=== PATIENT | female | born 1940 | race African-American/Black ===

== ENCOUNTER 2023-03-28 12:06 | Observation (INO) | payer OTHER, BC ==
[2023-03-28 16:04] LABS: BASO % 0.5 % (0-2.0); HEMATOCRIT 17.8 % (32.4-45.2); LYMPH % 39.2 % (8-40); MCH 32.5 pg (25.7-33.7); MEAN CELL VOLUME 98.7 fl (80-96); MEAN PLT VOLUME 8.5 fl (7.5-11.1); MONO % 9.5 % (3.8-10.2); NEUT % 50.8 % (42.8-82.8); PLATELET COUNT 120 10^3/uL (134-434); RDW 26.7 % (11.6-15.6); WHITE BLOOD COUNT 4.2 K/mm3 (4.0-10.0)
[2023-03-28 16:07] LABS: HEMOGLOBIN 5.9 GM/dL (10.7-15.3)
[2023-03-28 16:28] LABS: POTASSIUM 3.8 mmol/L (3.5-5.1)
[2023-03-28 16:30] LABS: CALCIUM 9.5 mg/dL (8.5-10.1)
[2023-03-28 16:31] LABS: ALBUMIN 2.8 g/dl (3.4-5.0); BLOOD UREA NITROGEN 25.9 mg/dL (7-18)
[2023-03-28 16:34] LABS: CREATININE 3.9 mg/dL (0.55-1.3)
[2023-03-28 16:36] LABS: BILIRUBIN,TOTAL 0.4 mg/dL (0.2-1); TOT PROT 8.6 g/dl (6.4-8.2)
[2023-03-28 16:50] LABS: ANISOCYTOSIS 3+; MACROCYTOSIS 0; OVALOCYTE 1+
[2023-03-28 21:07] LABS: RETICULOCYTES 2.69 % (0.5-1.5)
[2023-03-28] MEDS: SODIUM BICARBONATE 650 MG TABLET PO SCH (23:03)
[2023-03-28] MEDS: METOPROLOL TARTRATE 50 MG TABLET (FP) PO SCH (23:03)
[2023-03-29] VITALS: BMI 25.2
[2023-03-29 04:56] VITALS: RESP 16
[2023-03-29] MEDS: SODIUM BICARBONATE 650 MG TABLET PO SCH ×2 (06:29→13:05)
[2023-03-29] MEDS: METOPROLOL TARTRATE 50 MG TABLET (FP) PO SCH (09:43)
[2023-03-29] MEDS ORDERED: ATORVASTATIN CA 20 MG TABLET (FP) PO SCH (10:00)
[2023-03-29 10:09] LABS: BASO % 0.3 % (0-2.0); HEMATOCRIT 27.7 % (32.4-45.2); HEMOGLOBIN 9.2 GM/dL (10.7-15.3); LYMPH % 30.5 % (8-40); MCH 30.7 pg (25.7-33.7); MCHC 33.2 g/dl (32.0-36.0); MEAN CELL VOLUME 92.3 fl (80-96); MONO % 9.7 % (3.8-10.2); NEUT % 59.5 % (42.8-82.8); RDW 24.7 % (11.6-15.6); WHITE BLOOD COUNT 5.4 K/mm3 (4.0-10.0)
[2023-03-29 10:15] LABS: POTASSIUM 4.2 mmol/L (3.5-5.1)
[2023-03-29 10:22] LABS: BLOOD UREA NITROGEN 25.3 mg/dL (7-18); CALCIUM 9.2 mg/dL (8.5-10.1)
[2023-03-29 10:25] LABS: CREATININE 3.5 mg/dL (0.55-1.3)
[2023-03-29 16:02] VITALS: BP 186/82; PULSE 58; TEMP 98.6
== END 2023-03-29 18:07 | disposition home or self-care (01) ==
LOC: JER 12:06 → JERBED 16:46 → INTOOBSV 16:46 → UNDOADMOB 16:46 → JERBED 17:30 → J5S 18:16
PROVIDERS: ADMIT Internal Medicine; ATTEND Internal Medicine
PROC: 30233N1 Transfusion of Nonautologous Red Blood Cells into Peripheral Vein, Percutaneous Approach (ICD-10-PCS; principal; 2023-03-28)
DX: D64.9 Anemia, unspecified (principal); N18.4 Chronic kidney disease, stage 4 (severe); C88.0 Waldenstrom macroglobulinemia; Z90.49 Acquired absence of other specified parts of digestive tract; Z85.3 Personal history of malignant neoplasm of breast
CPT/HCPCS: 0241U-QW; 36415; 36430; 80048; 80053; 82272; 82607; 82728; 82746; 83540; 83550; 83615; 84466; 85025; 85045; 86850; 86900; 86901; 86922; 93005; 93010; 99285-25; G0378; P9038; P9058

== ENCOUNTER 2023-11-27 11:04 | Emergency (ER) | payer OTHER, BC ==
[2023-11-27 11:16] VITALS: BP 112/62; PULSE 79; RESP 18; TEMP 97.7; BMI 22.8
== END 2023-11-27 12:13 | disposition home or self-care (01) ==
LOC: JERFT 11:04
DX: H11.32 Conjunctival hemorrhage, left eye (principal); R51.9 Headache, unspecified
CPT/HCPCS: 99282-25

== ENCOUNTER 2023-12-24 08:21 | Emergency (ER) | payer OTHER, BC ==
[2023-12-24 08:32] VITALS: BMI 24.0
[2023-12-24 11:23] LABS: BASO % 0.5 % (0-2.0); HEMATOCRIT 22.7 % (32.4-45.2); HEMOGLOBIN 7.4 GM/dL (10.7-15.3); LYMPH % 43.2 % (8-40); MCH 33.5 pg (25.7-33.7); MCHC 32.5 g/dl (32.0-36.0); MEAN CELL VOLUME 103.1 fl (80-96); MEAN PLT VOLUME 9.8 fl (7.5-11.1); NEUT % 46.3 % (42.8-82.8); PLATELET COUNT 100 10^3/uL (134-434); RDW 15.9 % (11.6-15.6)
[2023-12-24 11:33] LABS: INR 0.99 (0.83-1.09); PROTHROMBIN TIME (PATIENT) 11.2 SEC (9.7-13.0)
[2023-12-24 11:35] LABS: ACTIVATED PTT 27.9 SECONDS (25.2-36.5)
[2023-12-24 11:42] LABS: POTASSIUM 4.5 mmol/L (3.5-5.1)
[2023-12-24 11:45] LABS: ALBUMIN 2.8 g/dl (3.4-5.0); BLOOD UREA NITROGEN 53.2 mg/dL (7-18)
[2023-12-24 11:48] LABS: CREATININE 5.8 mg/dL (0.55-1.3)
[2023-12-24 11:49] LABS: BILIRUBIN,TOTAL 0.4 mg/dL (0.2-1); CALCIUM 10.1 mg/dL (8.5-10.1); TOT PROT 6.8 g/dl (6.4-8.2)
[2023-12-24 11:53] LABS: N-TERMINAL BNP 5661.4 pg/ml (5-450)
[2023-12-24 17:21] VITALS: BP 168/78; PULSE 68; RESP 18; TEMP 98.5
== END 2023-12-24 17:26 | disposition short-term general hospital (02) ==
LOC: JER 08:21
DX: H53.132 Sudden visual loss, left eye (principal); C88.0 Waldenstrom macroglobulinemia; I12.0 Hypertensive chronic kidney disease with stage 5 chronic kidney disease or end stage renal disease; N18.6 End stage renal disease; Z99.2 Dependence on renal dialysis; H53.8 Other visual disturbances; R06.02 Shortness of breath; R51.9 Headache, unspecified; G89.29 Other chronic pain; M79.89 Other specified soft tissue disorders; Z20.822 Contact with and (suspected) exposure to COVID-19
CPT/HCPCS: 0241U-QW; 36415; 70450-TC; 71045-TC-FY; 80053; 83880; 84484; 85025; 85610; 85730; 93005; 93010; 99285-25

== ENCOUNTER 2024-01-04 12:10 | Inpatient (IN) | payer OTHER, BC ==
[2024-01-04 14:33] LABS: BASO % 0.8 % (0-2.0); HEMOGLOBIN 7.6 GM/dL (10.7-15.3); LYMPH % 29.6 % (8-40); MCH 32.4 pg (25.7-33.7); MCHC 31.7 g/dl (32.0-36.0); MEAN CELL VOLUME 102.5 fl (80-96); MONO % 11.8 % (3.8-10.2); NEUT % 57.8 % (42.8-82.8); RBC 2.35 M/mm3 (3.60-5.2); RDW 16.6 % (11.6-15.6); WHITE BLOOD COUNT 3.9 K/mm3 (4.0-10.0)
[2024-01-04 14:51] LABS: POTASSIUM 5.8 mmol/L (3.5-5.1)
[2024-01-04 14:53] LABS: CALCIUM 10.2 mg/dL (8.5-10.1)
[2024-01-04 14:54] LABS: ALBUMIN 2.4 g/dl (3.4-5.0); MAGNESIUM 2.6 mg/dL (1.8-2.4)
[2024-01-04 14:55] LABS: ANISOCYTOSIS 2+; MACROCYTOSIS 0; OVALOCYTE 1+; TEAR DROP CELLS 1+
[2024-01-04 14:56] LABS: BLOOD UREA NITROGEN 78.3 mg/dL (7-18); MEAN PLT VOLUME 9.3 fl (7.5-11.1); PLATELET COUNT 82 10^3/uL (134-434)
[2024-01-04 14:57] LABS: PHOSPHOROUS 3.1 mg/dL (2.5-4.9)
[2024-01-04 14:58] LABS: BILIRUBIN,TOTAL 0.5 mg/dL (0.2-1); TOT PROT 7.3 g/dl (6.4-8.2)
[2024-01-04 16:04] LABS: HIV INTERPRETATION NEGATIVE (NEGATIVE)
[2024-01-04 17:08] LABS: INR 1.07 (0.83-1.09); PROTHROMBIN TIME (PATIENT) 12.3 SEC (9.7-13.0)
[2024-01-04 17:11] LABS: ACTIVATED PTT 25.7 SECONDS (25.2-36.5)
[2024-01-04 17:22] LABS: POTASSIUM 5.4 mmol/L (3.5-5.1)
[2024-01-04 17:24] LABS: ALBUMIN 2.3 g/dl (3.4-5.0); BLOOD UREA NITROGEN 77.9 mg/dL (7-18); CALCIUM 10.7 mg/dL (8.5-10.1)
[2024-01-04 17:27] LABS: CREATININE 6.9 mg/dL (0.55-1.3)
[2024-01-04 17:29] LABS: BILIRUBIN,TOTAL 0.5 mg/dL (0.2-1)
[2024-01-04] MEDS: SODIUM CHLORIDE 0.9% 500 ML INFUS.BAG IV ONE (18:02)
[2024-01-04 19:52] LABS: EPI CELLS 18 /uL (0-25.1); HYALINE CASTS 1 /uL (0-3.1); URINE APPEARANCE CLOUDY; URINE BACTERIA 4 /uL (0-1359); URINE BILIRUBIN NEGATIVE (NEGATIVE); URINE COLOR YELLOW; URINE GLUCOSE (UA) NEGATIVE (NEGATIVE); URINE KETONE NEGATIVE (NEGATIVE); URINE LEUK ESTERASE NEGATIVE (NEGATIVE); URINE NITRITE NEGATIVE (NEGATIVE); URINE PROTEIN 2+ (NEGATIVE); URINE RBC 7 /uL (0-23.9); URINE UROBILINOGEN 0.2 mg/dL (0.2-1.0); URINE WBC 33 /uL (0-25.8)
[2024-01-05] MEDS ORDERED: CEFTRIAXONE 1 GM/50 ML BAG ONE ×2 (07:00→11:04)
[2024-01-05] MEDS: CEFTRIAXONE 1 GM in DEXTROSE 5%-WATER - 50 ML IVPB SCH (07:04)
[2024-01-05] MEDS ORDERED: SODIUM BICARBONATE 8.4% 50 MEQ/50 ML DISP.SYRIN ONE (08:07)
[2024-01-05] MEDS: SODIUM BICARBONATE 650 MG TABLET PO SCH (08:28)
[2024-01-05] MEDS ORDERED: METOPROLOL TARTRATE 50 MG TABLET (FP) ONE (11:04)
[2024-01-05] MEDS: METOPROLOL TARTRATE 50 MG TABLET (FP) PO SCH (11:33)
[2024-01-05] MEDS ORDERED: SODIUM CHLORIDE 250 ML IV PRN (11:58)
[2024-01-05 15:29] LABS: HEMATOCRIT 19.7 % (32.4-45.2); MCH 32.2 pg (25.7-33.7); MEAN CELL VOLUME 100.7 fl (80-96); MEAN PLT VOLUME 8.5 fl (7.5-11.1); PLATELET COUNT 85 10^3/uL (134-434); RBC 1.96 M/mm3 (3.60-5.2); RDW 16.5 % (11.6-15.6); WHITE BLOOD COUNT 2.9 K/mm3 (4.0-10.0)
[2024-01-05 15:42] LABS: HEMOGLOBIN 6.3 GM/dL (10.7-15.3)
[2024-01-05 16:01] LABS: ANISOCYTOSIS 1+; MACROCYTOSIS 1+
[2024-01-05 16:29] LABS: CHLORIDE 104 mmol/L (98-107); POTASSIUM 4.6 mmol/L (3.5-5.1); SODIUM 137 mmol/L (136-145)
[2024-01-05 16:31] LABS: CALCIUM 9.4 mg/dL (8.5-10.1)
[2024-01-05 16:32] LABS: ALBUMIN 2.1 g/dl (3.4-5.0); ANION GAP 14 mmol/L (4-13); BLOOD UREA NITROGEN 99.6 mg/dL (7-18); CO2 19 mmol/L (21-32); GLUCOSE,RANDOM 86 mg/dL (74-106); MAGNESIUM 2.5 mg/dL (1.8-2.4)
[2024-01-05 16:35] LABS: CREATININE 7.2 mg/dL (0.55-1.3); PHOSPHOROUS 3.3 mg/dL (2.5-4.9); SGOT/AST 40 U/L (15-37); SGPT/ALT 29 U/L (13-61)
[2024-01-05 16:36] LABS: BILIRUBIN,TOTAL 0.4 mg/dL (0.2-1); TOT PROT 6.4 g/dl (6.4-8.2)
[2024-01-05 16:38] LABS: ALK PHOS 54 U/L (45-117)
[2024-01-05 16:51] LABS: LDH 363 U/L (84-246)
[2024-01-05 16:57] LABS: HEPATITIS B SURFACE AG MATERN NON-REACTIVE (NONREACTIVE)
[2024-01-05 18:36] LABS: IRON SERUM 29 ug/dL (50-175); TOTAL IRON BINDING CAPACITY 97 ug/dL (250-450)
[2024-01-05 18:45] LABS: RETICULOCYTES 0.46 % (0.5-1.5)
[2024-01-05] MEDS: SODIUM BICARBONATE 8.4% - 50 MEQ in SODIUM CHLORIDE 0.45% 1,000 ML IV SCH (20:48)
[2024-01-05] MEDS: ACETAMINOPHEN 1000 MG/100 ML BAG IVPB ONE ×2 (21:21→21:31)
[2024-01-05] MEDS: ATORVASTATIN CA 20 MG TABLET (FP) PO SCH (21:31)
[2024-01-06] MEDS: SODIUM ZIRCONIUM CYCLOSILICATE (LOKELMA) 5 GM PACKET PO SCH (11:41)
[2024-01-06 12:04] LABS: HEMATOCRIT 23.4 % (32.4-45.2); HEMOGLOBIN 7.9 GM/dL (10.7-15.3); MCH 32.8 pg (25.7-33.7); MCHC 33.8 g/dl (32.0-36.0); MEAN PLT VOLUME 8.4 fl (7.5-11.1); PLATELET COUNT 77 10^3/uL (134-434); RBC 2.41 M/mm3 (3.60-5.2); WHITE BLOOD COUNT 3.1 K/mm3 (4.0-10.0)
[2024-01-06 12:26] LABS: ANISOCYTOSIS 0; MACROCYTOSIS 0
[2024-01-06 12:31] LABS: POTASSIUM 3.6 mmol/L (3.5-5.1)
[2024-01-06 12:32] LABS: CALCIUM 8.6 mg/dL (8.5-10.1)
[2024-01-06 12:37] LABS: BILIRUBIN,TOTAL 0.7 mg/dL (0.2-1); CREATININE 4.8 mg/dL (0.55-1.3); PHOSPHOROUS 1.9 mg/dL (2.5-4.9); TOT PROT 6.4 g/dl (6.4-8.2)
[2024-01-06 12:38] LABS: BLOOD UREA NITROGEN 53.1 mg/dL (7-18)
[2024-01-06] MEDS ORDERED: ONDANSETRON 4 MG/2 ML VIAL IVPUSH PRN (18:09)
[2024-01-06 19:50] LABS: SARS COV-2 MOLECULAR IN-HOUSE NEGATIVE (NEGATIVE)
[2024-01-06 20:47] LABS: VENOUS BASE EXCESS 0.2 mmol/L (-2-2); VENOUS O2 SATURATION 61.9 % (70-80); VENOUS PCO2 32.4 mmHg (38-52); VENOUS PH 7.478 (7.310-7.410)
[2024-01-06] MEDS: ACETAMINOPHEN 325 MG TABLET (FP) PO PRN (22:23)
[2024-01-07] MEDS ORDERED: CEFTRIAXONE 2 GM in DEXTROSE 5%-WATER 100 ML IVPB ONE (08:29)
[2024-01-07] MEDS ORDERED: SODIUM CHLORIDE 250 ML IV PRN (10:52)
[2024-01-07] MEDS ORDERED: VANCOMYCIN/WATER FOR INJ (PEG) 1,000 MG/200 ML BAG IVPB ONE (11:00)
[2024-01-07 13:08] LABS: BASO % 1.3 % (0-2.0); HEMATOCRIT 24.7 % (32.4-45.2); HEMOGLOBIN 8.3 GM/dL (10.7-15.3); LYMPH % 29.5 % (8-40); MCH 32.7 pg (25.7-33.7); MCHC 33.6 g/dl (32.0-36.0); MEAN CELL VOLUME 97.3 fl (80-96); MONO % 12.1 % (3.8-10.2); NEUT % 57.1 % (42.8-82.8); PLATELET COUNT 77 10^3/uL (134-434); RBC 2.54 M/mm3 (3.60-5.2); RDW 16.4 % (11.6-15.6); WHITE BLOOD COUNT 2.5 K/mm3 (4.0-10.0)
[2024-01-07 13:34] LABS: POTASSIUM 3.3 mmol/L (3.5-5.1)
[2024-01-07 13:39] LABS: BLOOD UREA NITROGEN 30.7 mg/dL (7-18)
[2024-01-07 13:40] LABS: ALBUMIN 1.8 g/dl (3.4-5.0); CALCIUM 8.1 mg/dL (8.5-10.1)
[2024-01-07 13:44] LABS: CREATININE 3.1 mg/dL (0.55-1.3)
[2024-01-07 13:45] LABS: BILIRUBIN,TOTAL 0.8 mg/dL (0.2-1); TOT PROT 6.4 g/dl (6.4-8.2)
[2024-01-07 13:48] LABS: LACTIC ACID 3.8 mmol/L (0.4-2.0)
[2024-01-07 15:42] LABS: LACTIC ACID 3.8 mmol/L (0.4-2.0)
[2024-01-07] MEDS: VANCOMYCIN/WATER FOR INJ (PEG) 1,000 MG/200 ML BAG IVPB ONE (16:55)
[2024-01-07] MEDS: CEFTRIAXONE 2 GM in DEXTROSE 5%-WATER 100 ML IVPB ONE (16:55)
[2024-01-07] MEDS: DEXTROSE 5%-0.45% SALINE 1,000 ML IV SCH (16:56)
[2024-01-07 17:08] LABS: IG A QN SERUM. 7 mg/dL (64-422)
[2024-01-07] MEDS: POTASSIUM CHLORIDE ORAL LIQUID 20 MEQ/15 ML PO ONE ×2 (17:15→19:28)
[2024-01-07] MEDS: KCL 10 MEQ IVPB 10 MEQ/100 ML INFUS.BAG IVPB SCH (17:21)
[2024-01-07] MEDS: METOPROLOL TARTRATE 50 MG TABLET (FP) PO SCH (22:25)
[2024-01-07] MEDS: ATORVASTATIN CA 20 MG TABLET (FP) PO SCH (22:27)
[2024-01-08 09:31] LABS: BASO % 1.6 % (0-2.0); HEMOGLOBIN 7.5 GM/dL (10.7-15.3); LYMPH % 33.9 % (8-40); MCH 32.5 pg (25.7-33.7); MCHC 32.5 g/dl (32.0-36.0); MEAN PLT VOLUME 8.9 fl (7.5-11.1); MONO % 12.1 % (3.8-10.2); NEUT % 52.4 % (42.8-82.8); PLATELET COUNT 67 10^3/uL (134-434); RDW 16.3 % (11.6-15.6)
[2024-01-08 09:52] LABS: POTASSIUM 3.7 mmol/L (3.5-5.1)
[2024-01-08 10:07] LABS: CALCIUM 7.6 mg/dL (8.5-10.1)
[2024-01-08 10:08] LABS: ALBUMIN 1.6 g/dl (3.4-5.0); BLOOD UREA NITROGEN 41.9 mg/dL (7-18)
[2024-01-08 10:12] LABS: BILIRUBIN,TOTAL 0.4 mg/dL (0.2-1); CREATININE 4.3 mg/dL (0.55-1.3)
[2024-01-08 10:13] LABS: TOT PROT 5.9 g/dl (6.4-8.2)
[2024-01-08] MEDS: CEFTRIAXONE 2 GM in DEXTROSE 5%-WATER 100 ML IVPB SCH (12:09)
[2024-01-09 07:33] LABS: HEMATOCRIT 21.1 % (32.4-45.2); MCH 32.5 pg (25.7-33.7); MEAN CELL VOLUME 98.5 fl (80-96); MEAN PLT VOLUME 8.8 fl (7.5-11.1); PLATELET COUNT 52 10^3/uL (134-434); RBC 2.15 M/mm3 (3.60-5.2); WHITE BLOOD COUNT 3.1 K/mm3 (4.0-10.0)
[2024-01-09 07:50] LABS: POTASSIUM 3.3 mmol/L (3.5-5.1)
[2024-01-09 07:55] LABS: CALCIUM 7.9 mg/dL (8.5-10.1)
[2024-01-09 07:56] LABS: ALBUMIN 1.6 g/dl (3.4-5.0); BLOOD UREA NITROGEN 51.6 mg/dL (7-18)
[2024-01-09 07:58] LABS: CREATININE 5.2 mg/dL (0.55-1.3)
[2024-01-09 07:59] LABS: PHOSPHOROUS 1.3 mg/dL (2.5-4.9)
[2024-01-09 08:00] LABS: BILIRUBIN,TOTAL 0.4 mg/dL (0.2-1); LACTIC ACID 2.7 mmol/L (0.4-2.0); TOT PROT 5.9 g/dl (6.4-8.2)
[2024-01-09] MEDS: POTASSIUM CHLORIDE ORAL LIQUID 20 MEQ/15 ML PO ONE (09:53)
[2024-01-09 10:27] LABS: ANISOCYTOSIS 0; MACROCYTOSIS 0; OVALOCYTE 1+
[2024-01-09] MEDS ORDERED: SODIUM CHLORIDE 250 ML IV PRN (11:38)
[2024-01-09 11:56] LABS: LACTIC ACID 3.9 mmol/L (0.4-2.0)
[2024-01-09 14:53] LABS: LACTIC ACID 3.8 mmol/L (0.4-2.0)
[2024-01-09] MEDS: NAPH,MB-DB/K PH,MBDB POWDER PACKET PO SCH (16:10)
[2024-01-09] MEDS: EPOETIN ALFA-EPBX 10,000 UNIT/ML VIAL SQ ONE (17:34)
[2024-01-10 09:02] LABS: HEMATOCRIT 22.2 % (32.4-45.2); HEMOGLOBIN 7.1 GM/dL (10.7-15.3); MCH 31.9 pg (25.7-33.7); MCHC 32.1 g/dl (32.0-36.0); MEAN CELL VOLUME 99.3 fl (80-96); MEAN PLT VOLUME 8.3 fl (7.5-11.1); PLATELET COUNT 41 10^3/uL (134-434); RBC 2.24 M/mm3 (3.60-5.2); RDW 16.7 % (11.6-15.6)
[2024-01-10 09:36] LABS: LACTIC ACID 4.1 mmol/L (0.4-2.0)
[2024-01-10 09:46] LABS: POTASSIUM 3.9 mmol/L (3.5-5.1)
[2024-01-10 09:52] LABS: CALCIUM 8.5 mg/dL (8.5-10.1)
[2024-01-10 09:53] LABS: ALBUMIN 1.7 g/dl (3.4-5.0); BLOOD UREA NITROGEN 27.6 mg/dL (7-18)
[2024-01-10 09:56] LABS: CREATININE 3.5 mg/dL (0.55-1.3)
[2024-01-10 09:57] LABS: BILIRUBIN,TOTAL 0.5 mg/dL (0.2-1); TOT PROT 6.3 g/dl (6.4-8.2)
[2024-01-10 10:22] LABS: HEMATOCRIT 21.4 % (32.4-45.2); MCH 32.2 pg (25.7-33.7); MCHC 32.3 g/dl (32.0-36.0); MEAN CELL VOLUME 99.8 fl (80-96); MEAN PLT VOLUME 8.9 fl (7.5-11.1); PLATELET COUNT 41 10^3/uL (134-434); RBC 2.14 M/mm3 (3.60-5.2); RDW 16.4 % (11.6-15.6)
[2024-01-10 10:33] LABS: HEMOGLOBIN 6.9 GM/dL (10.7-15.3)
[2024-01-10 10:52] LABS: ANISOCYTOSIS 0; MACROCYTOSIS 0
[2024-01-10 13:02] LABS: LACTIC ACID 2.8 mmol/L (0.4-2.0)
[2024-01-10] MEDS ORDERED: SODIUM CHLORIDE 250 ML IV PRN (15:19)
[2024-01-10 16:52] LABS: LACTIC ACID 3.2 mmol/L (0.4-2.0)
[2024-01-11 07:08] LABS: IG A QN SERUM. 8 mg/dL (64-422); IG M QN SERUM 2968 mg/dL (26-217)
[2024-01-11 09:10] LABS: PHOSPHOROUS 2.3 mg/dL (2.5-4.9)
[2024-01-11 09:49] LABS: BILIRUBIN,TOTAL 0.7 mg/dL (0.2-1)
[2024-01-11 11:49] LABS: HEMATOCRIT 24.5 % (32.4-45.2); HEMOGLOBIN 8.1 GM/dL (10.7-15.3); MCH 31.5 pg (25.7-33.7); MCHC 33.2 g/dl (32.0-36.0); MEAN CELL VOLUME 94.9 fl (80-96); MEAN PLT VOLUME 8.6 fl (7.5-11.1); RBC 2.58 M/mm3 (3.60-5.2); RDW 17.5 % (11.6-15.6); WHITE BLOOD COUNT 2.9 K/mm3 (4.0-10.0)
[2024-01-11 11:54] LABS: PLATELET COUNT 34 10^3/uL (134-434)
[2024-01-11] MEDS ORDERED: NAPH,MB-DB/K PH,MBDB POWDER PACKET PO SCH (12:00)
[2024-01-11 12:07] LABS: POTASSIUM 3.6 mmol/L (3.5-5.1)
[2024-01-11 12:09] LABS: CALCIUM 8.7 mg/dL (8.5-10.1)
[2024-01-11] MEDS: EPOETIN ALFA-EPBX 10,000 UNIT/ML VIAL SQ ONE (12:09)
[2024-01-11 12:10] LABS: ALBUMIN 1.6 g/dl (3.4-5.0); BLOOD UREA NITROGEN 23.4 mg/dL (7-18)
[2024-01-11 12:13] LABS: CREATININE 2.9 mg/dL (0.55-1.3)
[2024-01-11 12:14] LABS: BILIRUBIN,TOTAL 0.6 mg/dL (0.2-1)
[2024-01-11] MEDS ORDERED: LIDOCAINE HCL 1%, 10 MG/ML (20ML VIAL) ONE (13:31)
[2024-01-11] MEDS ORDERED: HEPARIN NA (PORCINE) 5,000 UNITS/ML 1ML VIAL ONE (13:31)
[2024-01-11] MEDS ORDERED: PROPOFOL 40 ML ONE (14:17)
[2024-01-11] MEDS ORDERED: PHENYLEPHRINE HCL 10 MG/1 ML SINGLE DOSE VIAL ONE (14:51)
[2024-01-11] MEDS ORDERED: ONDANSETRON 4 MG/2 ML VIAL IVPUSH PRN (15:32)
[2024-01-11] MEDS ORDERED: PROMETHAZINE HCL 25 MG/1 ML VIAL IVPB PRN (15:32)
[2024-01-11] MEDS ORDERED: LACTATED RINGERS SOLUTION 1,000 ML IV SCH (15:45)
[2024-01-11] MEDS: METOPROLOL TARTRATE 5 MG/5 ML VIAL IVPUSH ONE (16:42)
[2024-01-11] MEDS ORDERED: METOPROLOL TARTRATE 5 MG/5 ML VIAL ONE (16:44)
[2024-01-11 18:08] LABS: IG A QN SERUM. 9 mg/dL (64-422)
[2024-01-11 20:21] LABS: ARTERIAL BLD GAS O2 SATURATION 99.7 % (95-98); ARTERIAL BLOOD GAS BASE EXCESS 1.7 mmol/L (-2-2); ARTERIAL BLOOD GAS PO2 301.7 mmHg (80-100); ARTERIAL BLOOD GAS pH 7.501 (7.350-7.450)
[2024-01-11 20:22] LABS: ALLENS TEST POSITIVE
[2024-01-11] MEDS: DEXTROSE 5%-0.45% SALINE 1,000 ML IV SCH (20:57)
[2024-01-11] MEDS: METOPROLOL TARTRATE 50 MG TABLET (FP) PO SCH (22:35)
[2024-01-11 23:28] LABS: HEMATOCRIT 22.3 % (32.4-45.2); HEMOGLOBIN 7.4 GM/dL (10.7-15.3); MCH 31.8 pg (25.7-33.7); MEAN CELL VOLUME 96.5 fl (80-96); MEAN PLT VOLUME 8.4 fl (7.5-11.1); PLATELET COUNT 52 10^3/uL (134-434); RBC 2.31 M/mm3 (3.60-5.2); RDW 17.5 % (11.6-15.6); WHITE BLOOD COUNT 2.4 K/mm3 (4.0-10.0)
[2024-01-11] MEDS: MUPIROCIN 2% TOPICAL OINTMENT FOR DECOLONIZATION NS SCH (23:41)
[2024-01-11] MEDS: ATORVASTATIN CA 20 MG TABLET (FP) PO SCH (23:42)
[2024-01-11] MEDS: CHLORHEXIDINE GLUCONATE 4% CLEANSER FOR DECOLONIZATION TP SCH (23:42)
[2024-01-11 23:56] LABS: POTASSIUM 3.9 mmol/L (3.5-5.1)
[2024-01-11 23:58] LABS: CALCIUM 8.3 mg/dL (8.5-10.1)
[2024-01-11 23:58] LABS: ANISOCYTOSIS 2+; MACROCYTOSIS 0
[2024-01-11 23:59] LABS: ALBUMIN 1.6 g/dl (3.4-5.0); BLOOD UREA NITROGEN 18.8 mg/dL (7-18); MAGNESIUM 1.8 mg/dL (1.8-2.4)
[2024-01-12 00:02] LABS: CREATININE 2.5 mg/dL (0.55-1.3); PHOSPHOROUS 2.4 mg/dL (2.5-4.9)
[2024-01-12 00:03] LABS: BILIRUBIN,TOTAL 0.6 mg/dL (0.2-1)
[2024-01-12 00:10] LABS: LACTIC ACID 2.7 mmol/L (0.4-2.0)
[2024-01-12] MEDS: NAPH,MB-DB/K PH,MBDB POWDER PACKET PO SCH (01:09)
[2024-01-12 06:19] LABS: HEMATOCRIT 21.6 % (32.4-45.2); MCH 31.8 pg (25.7-33.7); MCHC 32.6 g/dl (32.0-36.0); MEAN CELL VOLUME 97.6 fl (80-96); MEAN PLT VOLUME 8.4 fl (7.5-11.1); PLATELET COUNT 46 10^3/uL (134-434); RBC 2.21 M/mm3 (3.60-5.2); RDW 17.3 % (11.6-15.6); WHITE BLOOD COUNT 2.3 K/mm3 (4.0-10.0)
[2024-01-12 06:29] LABS: POTASSIUM 3.8 mmol/L (3.5-5.1)
[2024-01-12 06:33] LABS: ALBUMIN 1.5 g/dl (3.4-5.0); BLOOD UREA NITROGEN 21.1 mg/dL (7-18)
[2024-01-12 06:34] LABS: MAGNESIUM 1.8 mg/dL (1.8-2.4)
[2024-01-12 06:37] LABS: PHOSPHOROUS 2.6 mg/dL (2.5-4.9)
[2024-01-12 06:38] LABS: BILIRUBIN,TOTAL 0.6 mg/dL (0.2-1); TOT PROT 5.9 g/dl (6.4-8.2)
[2024-01-12 07:14] LABS: LACTIC ACID 2.4 mmol/L (0.4-2.0)
[2024-01-12 09:56] LABS: ANISOCYTOSIS 0; HELMET CELLS 0; HOWELL-JOLLY BODIES 0; MACROCYTOSIS 0; OVALOCYTE 0; ROULEAU 0; SICKELED CELLS 0; TARGET CELLS 0; TEAR DROP CELLS 0; TOXIC GRANULATION 0
[2024-01-12] MEDS: CEFTRIAXONE 2 GM in DEXTROSE 5%-WATER 100 ML IVPB SCH (10:51)
[2024-01-12 13:09] LABS: LACTIC ACID 3.3 mmol/L (0.4-2.0)
[2024-01-12 13:51] VITALS: BMI 25.4
[2024-01-12 15:50] LABS: LACTIC ACID 3.7 mmol/L (0.4-2.0)
[2024-01-12 17:35] LABS: LACTIC ACID 3.8 mmol/L (0.4-2.0)
[2024-01-12] MEDS: ACETAMINOPHEN 325 MG TABLET (FP) PO PRN (21:52)
[2024-01-12 22:05] LABS: LACTIC ACID 4.6 mmol/L (0.4-2.0)
[2024-01-12] MEDS: SODIUM CHLORIDE 500 ML IV STA (23:06)
[2024-01-13 07:33] LABS: HEMATOCRIT 22.9 % (32.4-45.2); HEMOGLOBIN 7.5 GM/dL (10.7-15.3); MCH 32.1 pg (25.7-33.7); MEAN CELL VOLUME 97.3 fl (80-96); RBC 2.35 M/mm3 (3.60-5.2); RDW 17.2 % (11.6-15.6)
[2024-01-13 07:52] LABS: POTASSIUM 3.8 mmol/L (3.5-5.1)
[2024-01-13 08:02] LABS: ALBUMIN 1.6 g/dl (3.4-5.0)
[2024-01-13 08:03] LABS: BLOOD UREA NITROGEN 30.8 mg/dL (7-18); MAGNESIUM 1.8 mg/dL (1.8-2.4)
[2024-01-13 08:07] LABS: BILIRUBIN,TOTAL 0.6 mg/dL (0.2-1); TOT PROT 6.3 g/dl (6.4-8.2)
[2024-01-13 08:24] LABS: PLATELET COUNT 36 10^3/uL (134-434)
[2024-01-13 09:05] LABS: ANISOCYTOSIS 0; HELMET CELLS 0; HOWELL-JOLLY BODIES 0; MACROCYTOSIS 0; OVALOCYTE 0; ROULEAU 0; SICKELED CELLS 0; TARGET CELLS 0; TEAR DROP CELLS 0; TOXIC GRANULATION 0
[2024-01-13] MEDS: ACETAMINOPHEN 325 MG TABLET (FP) PO PRN (09:50)
[2024-01-13] MEDS ORDERED: INSULIN ASPART SLIDING SCALE (NOVOLOG) 1 VIAL SQ ONE (11:11)
[2024-01-13 14:25] LABS: PHOSPHOROUS 1.9 mg/dL (2.5-4.9)
[2024-01-13] MEDS: SODIUM CHLORIDE 500 ML IV STA (15:10)
[2024-01-13] MEDS: MIDODRINE HCL 5 MG TABLET PO SCH (15:45)
[2024-01-13] MEDS: DEXTROSE 5%-0.45% SALINE 1,000 ML IV SCH (17:27)
[2024-01-13] MEDS: ATORVASTATIN CA 20 MG TABLET (FP) PO SCH (21:58)
[2024-01-13] MEDS: METOPROLOL TARTRATE 25 MG TABLET (FP) PO SCH (21:59)
[2024-01-13] MEDS ORDERED: METOPROLOL TARTRATE 50 MG TABLET (FP) PO SCH (22:00)
[2024-01-14] MEDS ORDERED: SODIUM CHLORIDE 250 ML IV PRN (00:17)
[2024-01-14 06:40] LABS: POTASSIUM 4.1 mmol/L (3.5-5.1)
[2024-01-14 06:43] LABS: ALBUMIN 1.3 g/dl (3.4-5.0); BLOOD UREA NITROGEN 35.9 mg/dL (7-18)
[2024-01-14 06:45] LABS: CALCIUM 7.4 mg/dL (8.5-10.1); MAGNESIUM 1.7 mg/dL (1.8-2.4)
[2024-01-14 06:46] LABS: CREATININE 4.7 mg/dL (0.55-1.3)
[2024-01-14 06:51] LABS: BILIRUBIN,TOTAL 0.4 mg/dL (0.2-1); TOT PROT 6.2 g/dl (6.4-8.2)
[2024-01-14 06:58] LABS: HEMATOCRIT 21.2 % (32.4-45.2); MCH 31.9 pg (25.7-33.7); MCHC 32.9 g/dl (32.0-36.0); MEAN CELL VOLUME 96.9 fl (80-96); RBC 2.19 M/mm3 (3.60-5.2); RDW 16.9 % (11.6-15.6); WHITE BLOOD COUNT 2.5 K/mm3 (4.0-10.0)
[2024-01-14 07:05] LABS: PLATELET COUNT 27 10^3/uL (134-434)
[2024-01-14 07:48] LABS: LACTIC ACID 2.6 mmol/L (0.4-2.0)
[2024-01-14 08:38] LABS: ANISOCYTOSIS 2+; MACROCYTOSIS 0
[2024-01-14] MEDS: CEFTRIAXONE 2 GM in DEXTROSE 5%-WATER 100 ML IVPB SCH (09:53)
[2024-01-14] MEDS: METOPROLOL TARTRATE 25 MG TABLET (FP) PO ONE (11:30)
[2024-01-14] MEDS: SODIUM CHLORIDE 500 ML IV STA (13:00)
[2024-01-14] MEDS: SODIUM CHLORIDE 0.9% 500 ML INFUS.BAG IV ONE (15:30)
[2024-01-14] MEDS: MAGNESIUM SULF 50% (8.12 MEQ/2 ML-1 GM VIAL) IVPB ONE (15:54)
[2024-01-14] MEDS: NOREPINEPHRINE 0.9 % NACL 8 MG/250 ML BAG IVPB SCH (16:00)
[2024-01-15 06:57] LABS: HEMATOCRIT 25.1 % (32.4-45.2); HEMOGLOBIN 8.4 GM/dL (10.7-15.3); MCH 31.7 pg (25.7-33.7); MCHC 33.4 g/dl (32.0-36.0); MEAN CELL VOLUME 94.8 fl (80-96); RBC 2.65 M/mm3 (3.60-5.2); RDW 17.2 % (11.6-15.6)
[2024-01-15 07:20] LABS: POTASSIUM 3.8 mmol/L (3.5-5.1)
[2024-01-15 07:22] LABS: ALBUMIN 1.3 g/dl (3.4-5.0); BLOOD UREA NITROGEN 19.1 mg/dL (7-18); CALCIUM 7.9 mg/dL (8.5-10.1); MAGNESIUM 1.7 mg/dL (1.8-2.4)
[2024-01-15 07:23] LABS: PLATELET COUNT 24 10^3/uL (134-434)
[2024-01-15 07:27] LABS: BILIRUBIN,TOTAL 0.5 mg/dL (0.2-1); TOT PROT 6.6 g/dl (6.4-8.2)
[2024-01-15 10:45] LABS: ANISOCYTOSIS 2+; MACROCYTOSIS 0
[2024-01-15] MEDS ORDERED: SODIUM CHLORIDE 250 ML IV PRN (17:37)
[2024-01-15] MEDS: MAGNESIUM SULFATE IN WATER 2 GM/50 ML IVPB IVPB ONE (17:40)
[2024-01-15] MEDS: NAPH,MB-DB/K PH,MBDB POWDER PACKET PO SCH (22:28)
[2024-01-16 06:42] LABS: HEMATOCRIT 25.6 % (32.4-45.2); HEMOGLOBIN 8.4 GM/dL (10.7-15.3); MCH 31.5 pg (25.7-33.7); MCHC 32.9 g/dl (32.0-36.0); MEAN CELL VOLUME 95.9 fl (80-96); MEAN PLT VOLUME 8.5 fl (7.5-11.1); RBC 2.67 M/mm3 (3.60-5.2); RDW 17.1 % (11.6-15.6); WHITE BLOOD COUNT 2.6 K/mm3 (4.0-10.0)
[2024-01-16 07:00] LABS: PLATELET COUNT 21 10^3/uL (134-434)
[2024-01-16 07:00] LABS: MAGNESIUM 2.2 mg/dL (1.8-2.4)
[2024-01-16 07:03] LABS: PHOSPHOROUS 2.9 mg/dL (2.5-4.9)
[2024-01-16 07:08] LABS: ALBUMIN 1.3 g/dl (3.4-5.0); BLOOD UREA NITROGEN 27.2 mg/dL (7-18); CALCIUM 7.8 mg/dL (8.5-10.1)
[2024-01-16 07:12] LABS: CREATININE 3.9 mg/dL (0.55-1.3)
[2024-01-16 07:13] LABS: BILIRUBIN,TOTAL 0.4 mg/dL (0.2-1)
[2024-01-16] MEDS ORDERED: methylPREDNISolone NA SUCC 40 MG/1 ML VIAL IVPUSH ONE (11:09)
[2024-01-16 17:51] LABS: ARTERIAL BLD GAS O2 SATURATION 79.5 % (95-98); ARTERIAL BLOOD GAS BASE EXCESS 1.9 mmol/L (-2-2); ARTERIAL BLOOD GAS PO2 42.3 mmHg (80-100); ARTERIAL BLOOD GAS pH 7.432 (7.350-7.450)
[2024-01-16 17:57] LABS: ALLENS TEST POSITIVE
[2024-01-16 23:31] LABS: HEMATOCRIT 24.3 % (32.4-45.2); MCH 31.5 pg (25.7-33.7); MCHC 32.9 g/dl (32.0-36.0); MEAN CELL VOLUME 95.9 fl (80-96); MEAN PLT VOLUME 7.8 fl (7.5-11.1); PLATELET COUNT 44 10^3/uL (134-434); RBC 2.53 M/mm3 (3.60-5.2); RDW 17.1 % (11.6-15.6); WHITE BLOOD COUNT 2.1 K/mm3 (4.0-10.0)
[2024-01-17 08:31] LABS: HEMATOCRIT 25.7 % (32.4-45.2); HEMOGLOBIN 8.6 GM/dL (10.7-15.3); MCH 31.8 pg (25.7-33.7); MCHC 33.4 g/dl (32.0-36.0); MEAN CELL VOLUME 95.1 fl (80-96); MEAN PLT VOLUME 7.9 fl (7.5-11.1); PLATELET COUNT 41 10^3/uL (134-434); RDW 16.9 % (11.6-15.6)
[2024-01-17 08:49] LABS: POTASSIUM 4.1 mmol/L (3.5-5.1)
[2024-01-17 08:53] LABS: CALCIUM 7.6 mg/dL (8.5-10.1)
[2024-01-17 08:54] LABS: ALBUMIN 1.4 g/dl (3.4-5.0)
[2024-01-17 08:56] LABS: BILIRUBIN,TOTAL 0.5 mg/dL (0.2-1); CREATININE 4.1 mg/dL (0.55-1.3)
[2024-01-17 08:58] LABS: TOT PROT 7.7 g/dl (6.4-8.2)
[2024-01-17] MEDS: MIDODRINE HCL 5 MG TABLET PO SCH (09:46)
[2024-01-17 10:14] LABS: ANISOCYTOSIS 1+; MACROCYTOSIS 0
[2024-01-18 07:56] LABS: HEMATOCRIT 22.5 % (32.4-45.2); HEMOGLOBIN 7.6 GM/dL (10.7-15.3); MCH 31.7 pg (25.7-33.7); MEAN CELL VOLUME 93.2 fl (80-96); RBC 2.41 M/mm3 (3.60-5.2); RDW 16.1 % (11.6-15.6); WHITE BLOOD COUNT 2.5 K/mm3 (4.0-10.0)
[2024-01-18 08:00] LABS: POTASSIUM 4.1 mmol/L (3.5-5.1)
[2024-01-18 08:04] LABS: MAGNESIUM 2.1 mg/dL (1.8-2.4)
[2024-01-18 08:05] LABS: ALBUMIN 1.2 g/dl (3.4-5.0); CALCIUM 7.5 mg/dL (8.5-10.1)
[2024-01-18 08:07] LABS: BLOOD UREA NITROGEN 33.8 mg/dL (7-18)
[2024-01-18 08:09] LABS: CREATININE 4.7 mg/dL (0.55-1.3)
[2024-01-18 08:10] LABS: BILIRUBIN,TOTAL 0.4 mg/dL (0.2-1); PHOSPHOROUS 4.2 mg/dL (2.5-4.9)
[2024-01-18 08:12] LABS: IG A QN SERUM. 22 mg/dL (64-422); IG M QN SERUM 5462 mg/dL (26-217)
[2024-01-18 08:15] LABS: PLATELET COUNT 32 10^3/uL (134-434)
[2024-01-18 08:57] LABS: ANISOCYTOSIS 2+; MACROCYTOSIS 0
[2024-01-18] MEDS: SODIUM CHLORIDE 0.9% 500 ML INFUS.BAG IV ONE (13:04)
[2024-01-19] MEDS ORDERED: ONDANSETRON 4 MG/2 ML VIAL ONE (04:51)
[2024-01-19] MEDS: ONDANSETRON 4 MG/2 ML VIAL IVPUSH ONE (05:05)
[2024-01-19 08:59] LABS: HEMATOCRIT 24.9 % (32.4-45.2); HEMOGLOBIN 8.1 GM/dL (10.7-15.3); MCH 31.3 pg (25.7-33.7); MCHC 32.6 g/dl (32.0-36.0); MEAN PLT VOLUME 7.9 fl (7.5-11.1); RDW 16.1 % (11.6-15.6)
[2024-01-19 09:06] LABS: PLATELET COUNT 30 10^3/uL (134-434)
[2024-01-19 09:20] LABS: CHLORIDE 103 mmol/L (98-107); POTASSIUM 4.2 mmol/L (3.5-5.1); SODIUM 138 mmol/L (136-145)
[2024-01-19 09:26] LABS: ALBUMIN 1.3 g/dl (3.4-5.0); ANION GAP 12 mmol/L (4-13); BLOOD UREA NITROGEN 41.4 mg/dL (7-18); CALCIUM 7.9 mg/dL (8.5-10.1); CO2 22 mmol/L (21-32); GLUCOSE,RANDOM 95 mg/dL (74-106)
[2024-01-19 09:27] LABS: MAGNESIUM 2.2 mg/dL (1.8-2.4)
[2024-01-19 09:30] LABS: CREATININE 5.4 mg/dL (0.55-1.3); SGOT/AST 17 U/L (15-37)
[2024-01-19 09:31] LABS: ALK PHOS 61 U/L (45-117); BILIRUBIN,TOTAL 0.4 mg/dL (0.2-1); TOT PROT 7.8 g/dl (6.4-8.2)
[2024-01-19 09:35] LABS: SGPT/ALT < 6 U/L (13-61)
[2024-01-19 09:42] LABS: ANISOCYTOSIS 2+; MACROCYTOSIS 0
[2024-01-19] MEDS: FUROSEMIDE 40 MG/4 ML INJECTABLE VIAL IVPUSH ONE (15:47)
[2024-01-19] MEDS ORDERED: NOREPINEPHRINE BITARTRATE 4 MG/4 ML ML IV ONE (17:32)
[2024-01-19] MEDS: METOPROLOL TARTRATE 25 MG TABLET (FP) PO SCH (21:23)
[2024-01-20 08:14] LABS: HEMATOCRIT 22.5 % (32.4-45.2); HEMOGLOBIN 7.5 GM/dL (10.7-15.3); MCHC 33.3 g/dl (32.0-36.0); MEAN PLT VOLUME 8.9 fl (7.5-11.1); RBC 2.34 M/mm3 (3.60-5.2); RDW 16.3 % (11.6-15.6); WHITE BLOOD COUNT 2.1 K/mm3 (4.0-10.0)
[2024-01-20 08:24] LABS: CHLORIDE 106 mmol/L (98-107); POTASSIUM 4.3 mmol/L (3.5-5.1); SODIUM 139 mmol/L (136-145)
[2024-01-20 08:29] LABS: PLATELET COUNT 32 10^3/uL (134-434)
[2024-01-20 08:34] LABS: CALCIUM 7.6 mg/dL (8.5-10.1)
[2024-01-20 08:35] LABS: ALBUMIN 1.2 g/dl (3.4-5.0); ANION GAP 12 mmol/L (4-13); BLOOD UREA NITROGEN 45.6 mg/dL (7-18); CO2 21 mmol/L (21-32); GLUCOSE,RANDOM 99 mg/dL (74-106)
[2024-01-20 08:38] LABS: CREATININE 5.9 mg/dL (0.55-1.3); PHOSPHOROUS 5.8 mg/dL (2.5-4.9); SGPT/ALT < 6 U/L (13-61)
[2024-01-20 08:40] LABS: BILIRUBIN,TOTAL 0.5 mg/dL (0.2-1); SGOT/AST 15 U/L (15-37)
[2024-01-20 08:41] LABS: ALK PHOS 57 U/L (45-117); TOT PROT 7.4 g/dl (6.4-8.2)
[2024-01-20] MEDS ORDERED: PANTOPRAZOLE SODIUM 160 MG in SODIUM CHLORIDE 290 ML IVPB SCH (09:00)
[2024-01-20] MEDS ORDERED: PANTOPRAZOLE SODIUM 80 MG in SODIUM CHLORIDE 100 ML IVPB SCH (09:00)
[2024-01-20 09:14] LABS: ANISOCYTOSIS 1+; MACROCYTOSIS 0
[2024-01-20] MEDS: PANTOPRAZOLE SODIUM 40 MG VIAL IVPUSH SCH (09:18)
[2024-01-20] MEDS: MIDODRINE HCL 5 MG TABLET PO SCH (09:19)
[2024-01-20] MEDS: ONDANSETRON 4 MG/2 ML VIAL IVPUSH PRN (09:19)
[2024-01-20] MEDS: SEVELAMER CARBONATE 800 MG TAB (FP) PO SCH (12:50)
[2024-01-20] MEDS: ONDANSETRON 4 MG/2 ML VIAL IVPUSH SCH (12:54)
[2024-01-20] MEDS: FUROSEMIDE 40 MG TABLET (FP) PO ONE (12:54)
[2024-01-20] MEDS: MIRTAZAPINE 15 MG TABLET (FP) PO SCH (21:31)
[2024-01-21 07:29] LABS: HEMATOCRIT 23.4 % (32.4-45.2); HEMOGLOBIN 7.6 GM/dL (10.7-15.3); MCH 31.6 pg (25.7-33.7); MCHC 32.7 g/dl (32.0-36.0); MEAN CELL VOLUME 96.8 fl (80-96); MEAN PLT VOLUME 8.5 fl (7.5-11.1); RBC 2.42 M/mm3 (3.60-5.2); RDW 17.4 % (11.6-15.6); WHITE BLOOD COUNT 2.6 K/mm3 (4.0-10.0)
[2024-01-21 07:41] LABS: CHLORIDE 105 mmol/L (98-107); SODIUM 140 mmol/L (136-145)
[2024-01-21 07:43] LABS: ALBUMIN 1.2 g/dl (3.4-5.0)
[2024-01-21 07:44] LABS: ANION GAP 16 mmol/L (4-13); BLOOD UREA NITROGEN 54.1 mg/dL (7-18); CO2 18 mmol/L (21-32); GLUCOSE,RANDOM 91 mg/dL (74-106)
[2024-01-21 07:45] LABS: CALCIUM 7.8 mg/dL (8.5-10.1); MAGNESIUM 2.3 mg/dL (1.8-2.4)
[2024-01-21 07:46] LABS: PHOSPHOROUS 6.9 mg/dL (2.5-4.9)
[2024-01-21 07:47] LABS: CREATININE 6.6 mg/dL (0.55-1.3); SGOT/AST 14 U/L (15-37)
[2024-01-21 07:48] LABS: BILIRUBIN,TOTAL 0.5 mg/dL (0.2-1); SGPT/ALT < 6 U/L (13-61); TOT PROT 7.9 g/dl (6.4-8.2)
[2024-01-21 07:49] LABS: ALK PHOS 58 U/L (45-117)
[2024-01-21 07:54] LABS: PLATELET COUNT 21 10^3/uL (134-434)
[2024-01-21 08:41] LABS: ANISOCYTOSIS 0; MACROCYTOSIS 0
[2024-01-21] MEDS: SODIUM BICARBONATE 650 MG TABLET PO SCH (09:07)
[2024-01-21] MEDS: LOPERAMIDE HCL 2 MG CAPSULE PO PRN (09:07)
[2024-01-21] MEDS: FUROSEMIDE 40 MG TABLET (FP) PO ONE (13:22)
[2024-01-21] MEDS: SODIUM ZIRCONIUM CYCLOSILICATE (LOKELMA) 5 GM PACKET PO SCH (13:30)
[2024-01-21] MEDS: SODIUM CHLORIDE 500 ML IV STA (21:50)
[2024-01-21] MEDS: MIDODRINE HCL 5 MG TABLET PO SCH (23:07)
[2024-01-21] MEDS: DEXTROSE 50%-WATER 25 GM/50 ML DISP.SYRIN IVPUSH ONE (23:42)
[2024-01-22 01:46] LABS: LACTIC ACID 3.7 mmol/L (0.4-2.0)
[2024-01-22 07:01] LABS: HEMATOCRIT 18.8 % (32.4-45.2); MCH 31.6 pg (25.7-33.7); MEAN CELL VOLUME 95.9 fl (80-96); MEAN PLT VOLUME 8.3 fl (7.5-11.1); PLATELET COUNT 48 10^3/uL (134-434); RBC 1.96 M/mm3 (3.60-5.2); RDW 16.5 % (11.6-15.6)
[2024-01-22 07:12] LABS: PROTHROMBIN TIME (PATIENT) 43.4 SEC (9.7-13.0)
[2024-01-22 07:15] LABS: ACTIVATED PTT 32.6 SECONDS (25.2-36.5)
[2024-01-22 07:17] LABS: CHLORIDE 108 mmol/L (98-107); POTASSIUM 4.7 mmol/L (3.5-5.1); SODIUM 139 mmol/L (136-145)
[2024-01-22 07:23] LABS: HEMOGLOBIN 6.2 GM/dL (10.7-15.3); LACTIC ACID 3.7 mmol/L (0.4-2.0); WHITE BLOOD COUNT 1.2 K/mm3 (4.0-10.0)
[2024-01-22 07:26] LABS: CALCIUM 7.5 mg/dL (8.5-10.1)
[2024-01-22 07:27] LABS: ALBUMIN 1.2 g/dl (3.4-5.0); ANION GAP 14 mmol/L (4-13); BLOOD UREA NITROGEN 59.8 mg/dL (7-18); CO2 18 mmol/L (21-32); GLUCOSE,RANDOM 104 mg/dL (74-106)
[2024-01-22 07:30] LABS: PHOSPHOROUS 7.5 mg/dL (2.5-4.9); SGOT/AST 30 U/L (15-37)
[2024-01-22 07:31] LABS: BILIRUBIN,TOTAL 0.5 mg/dL (0.2-1); TOT PROT 7.2 g/dl (6.4-8.2)
[2024-01-22 07:33] LABS: ALK PHOS 56 U/L (45-117)
[2024-01-22 07:35] LABS: SGPT/ALT < 6 U/L (13-61)
[2024-01-22] MEDS: SODIUM CHLORIDE 0.9% 500 ML INFUS.BAG IV ONE (08:23)
[2024-01-22 09:53] LABS: ANISOCYTOSIS 2+; MACROCYTOSIS 0
[2024-01-22 10:48] LABS: LACTIC ACID 4.4 mmol/L (0.4-2.0)
[2024-01-22] MEDS ORDERED: CEFEPIME 1 GM in DEXTROSE 5%-WATER - 100 ML IVPB SCH (11:00)
[2024-01-22] MEDS: VANCOMYCIN/WATER FOR INJ (PEG) 1,000 MG/200 ML BAG IVPB ONE (11:58)
[2024-01-22] MEDS ORDERED: PHENYLEPHRINE NS PREMIX 50,000 MCG/500 ML BAG IVPB SCH (13:00)
[2024-01-22] MEDS ORDERED: NOREPINEPHRINE BITARTRATE 4 MG/4 ML ML IV ONE (13:01)
[2024-01-22] MEDS ORDERED: PHENYLEPHRINE HCL 10 MG/1 ML SINGLE DOSE VIAL ONE (13:03)
[2024-01-22] MEDS: PHENYLEPHRINE NS PREMIX 50,000 MCG/500 ML BAG CVP SCH (13:08)
[2024-01-22] MEDS ORDERED: DEXTROSE 50%-WATER 25 GM/50 ML DISP.SYRIN ONE (13:11)
[2024-01-22] MEDS ORDERED: SODIUM CHLORIDE 250 ML IV PRN (13:34)
[2024-01-22] MEDS: DEXTROSE 50%-WATER 25 GM/50 ML DISP.SYRIN IVPUSH ONE (13:38)
[2024-01-22] MEDS: MUPIROCIN 2% TOPICAL OINTMENT FOR DECOLONIZATION NS SCH (15:13)
[2024-01-22] MEDS: NOREPINEPHRINE BITARTRATE/D5W 8 MG/250 ML BAG IVPB SCH (15:14)
[2024-01-22] MEDS: CEFEPIME 1 GM in DEXTROSE 5%-WATER 100 ML IVPB SCH (15:15)
[2024-01-22] MEDS: CEFEPIME 1 GM in DEXTROSE 5%-WATER - 100 ML IVPB SCH (15:16)
[2024-01-22] MEDS: ALBUMIN HUMAN 25% 12.5 GM/50 ML VIAL IV SCH (15:49)
[2024-01-22] MEDS: EPOETIN ALFA-EPBX 10,000 UNIT/ML VIAL IVPUSH ONE (15:49)
[2024-01-22] MEDS: VASopressin 40 UNITS/100 ML BAG IV SCH (16:10)
[2024-01-22 18:41] LABS: HEMATOCRIT 20.2 % (32.4-45.2); MCH 30.7 pg (25.7-33.7); MCHC 33.8 g/dl (32.0-36.0); MEAN CELL VOLUME 90.8 fl (80-96); MEAN PLT VOLUME 7.9 fl (7.5-11.1); RBC 2.23 M/mm3 (3.60-5.2); RDW 17.5 % (11.6-15.6)
[2024-01-22 18:47] LABS: HEMOGLOBIN 6.8 GM/dL (10.7-15.3)
[2024-01-22 18:48] LABS: PLATELET COUNT 33 10^3/uL (134-434)
[2024-01-22 19:11] LABS: LACTIC ACID 3.5 mmol/L (0.4-2.0)
[2024-01-22 19:58] LABS: ANISOCYTOSIS 2+; MACROCYTOSIS 0
[2024-01-22 19:59] LABS: HIV INTERPRETATION NEGATIVE (NEGATIVE)
[2024-01-22] MEDS: CHLORHEXIDINE GLUCONATE 4% CLEANSER FOR DECOLONIZATION TP SCH (22:14)
[2024-01-22] MEDS: ZANUBRUTINIB 80 MG PO SCH (22:15)
[2024-01-23] MEDS: METOPROLOL TARTRATE 25 MG TABLET (FP) PO SCH ×2 (02:07→10:04)
[2024-01-23] MEDS ORDERED: LOPERAMIDE HCL 2 MG CAPSULE PO PRN (06:49)
[2024-01-23] MEDS ORDERED: LIDOCAINE HCL 1%, 10 MG/ML (20ML VIAL) ONE (07:00)
[2024-01-23] MEDS ORDERED: HEPARIN NA (PORCINE) 5,000 UNITS/ML 1ML VIAL ONE (07:00)
[2024-01-23] MEDS ORDERED: PROPOFOL 20 ML ONE (07:13)
[2024-01-23 08:37] LABS: HEMATOCRIT 19.7 % (32.4-45.2); MCH 30.8 pg (25.7-33.7); MCHC 33.7 g/dl (32.0-36.0); MEAN CELL VOLUME 91.5 fl (80-96); MEAN PLT VOLUME 8.8 fl (7.5-11.1); RBC 2.15 M/mm3 (3.60-5.2); RDW 17.8 % (11.6-15.6)
[2024-01-23 08:53] LABS: CHLORIDE 107 mmol/L (98-107); POTASSIUM 3.8 mmol/L (3.5-5.1); SODIUM 140 mmol/L (136-145)
[2024-01-23 08:56] LABS: WHITE BLOOD COUNT 1.6 K/mm3 (4.0-10.0)
[2024-01-23 08:57] LABS: HEMOGLOBIN 6.6 GM/dL (10.7-15.3); PLATELET COUNT 28 10^3/uL (134-434)
[2024-01-23 09:01] LABS: BLOOD UREA NITROGEN 42.6 mg/dL (7-18)
[2024-01-23 09:02] LABS: GLUCOSE,RANDOM 148 mg/dL (74-106); SGOT/AST 34 U/L (15-37)
[2024-01-23 09:03] LABS: ALBUMIN 1.6 g/dl (3.4-5.0); BILIRUBIN,TOTAL 1.5 mg/dL (0.2-1); TOT PROT 7.1 g/dl (6.4-8.2)
[2024-01-23 09:04] LABS: ALK PHOS 55 U/L (45-117); ANION GAP 14 mmol/L (4-13); CO2 19 mmol/L (21-32); CREATININE 5.1 mg/dL (0.55-1.3); MAGNESIUM 1.8 mg/dL (1.8-2.4)
[2024-01-23 09:05] LABS: PHOSPHOROUS 5.5 mg/dL (2.5-4.9)
[2024-01-23 09:07] LABS: CALCIUM 7.4 mg/dL (8.5-10.1)
[2024-01-23 09:11] LABS: PROTHROMBIN TIME (PATIENT) 61.7 SEC (9.7-13.0)
[2024-01-23 09:14] LABS: ACTIVATED PTT 47.6 SECONDS (25.2-36.5)
[2024-01-23 09:21] LABS: INR 5.75 (0.83-1.09)
[2024-01-23 09:27] LABS: ANISOCYTOSIS 0; MACROCYTOSIS 0
[2024-01-23] MEDS: PANTOPRAZOLE SODIUM 40 MG VIAL IVPUSH SCH (09:41)
[2024-01-23] MEDS: ONDANSETRON 4 MG/2 ML VIAL IVPUSH SCH (09:41)
[2024-01-23 09:49] LABS: SGPT/ALT < 6 U/L (13-61)
[2024-01-23] MEDS ORDERED: CEFEPIME 1 GM in DEXTROSE 5%-WATER 100 ML IVPB SCH (10:00)
[2024-01-23] MEDS: ACETAMINOPHEN 1000 MG/100 ML BAG IVPB ONE (10:03)
[2024-01-23] MEDS: SODIUM BICARBONATE 650 MG TABLET PO SCH (10:04)
[2024-01-23] MEDS: SEVELAMER CARBONATE 800 MG TAB (FP) PO SCH (10:04)
[2024-01-23] MEDS: MIDODRINE HCL 5 MG TABLET PO SCH (10:04)
[2024-01-23 11:08] LABS: LACTIC ACID 3.9 mmol/L (0.4-2.0)
[2024-01-23] MEDS: CEFEPIME 1 GM in DEXTROSE 5%-WATER 100 ML IVPB SCH (12:25)
[2024-01-23] MEDS: HYDROCORTISONE SOD SUCCINATE 100 MG/2 ML VIAL IVPUSH SCH (12:25)
[2024-01-23] MEDS: EPOETIN ALFA 10,000 UNIT/1 ML VIAL SQ ONE (12:26)
[2024-01-23] MEDS: oxyCODONE HCL 5 MG TABLET PO SCH (12:27)
[2024-01-23] MEDS: FLUDROCORTISONE ACETATE 0.1 MG TABLET (FP) PO SCH (12:27)
[2024-01-23] MEDS: PHYTONADIONE 10 MG/1 ML AMP IVPB ONE (12:27)
[2024-01-23] MEDS: ACETAMINOPHEN 325 MG TABLET (FP) PO SCH (12:28)
[2024-01-23] MEDS: DEXTROSE 5%-0.45% SALINE 1,000 ML IV SCH (15:04)
[2024-01-23] MEDS: MIRTAZAPINE 15 MG TABLET (FP) PO SCH (21:59)
[2024-01-24 01:42] LABS: HEMATOCRIT 22.3 % (32.4-45.2); HEMOGLOBIN 7.6 GM/dL (10.7-15.3); MCH 30.5 pg (25.7-33.7); MCHC 33.9 g/dl (32.0-36.0); MEAN CELL VOLUME 89.9 fl (80-96); MEAN PLT VOLUME 7.8 fl (7.5-11.1); RBC 2.49 M/mm3 (3.60-5.2); WHITE BLOOD COUNT 2.5 K/mm3 (4.0-10.0)
[2024-01-24 01:45] LABS: ARTERIAL BLD GAS O2 SATURATION 97.2 % (95-98); ARTERIAL BLOOD GAS BASE EXCESS -6.8 mmol/L (-2-2); ARTERIAL BLOOD GAS PO2 91.1 mmHg (80-100); ARTERIAL BLOOD GAS pH 7.417 (7.350-7.450); PLATELET COUNT 16 10^3/uL (134-434)
[2024-01-24 02:26] LABS: LACTIC ACID 5.3 mmol/L (0.4-2.0)
[2024-01-24 07:33] LABS: HEMATOCRIT 21.4 % (32.4-45.2); HEMOGLOBIN 7.4 GM/dL (10.7-15.3); MCH 31.1 pg (25.7-33.7); MCHC 34.7 g/dl (32.0-36.0); MEAN CELL VOLUME 89.9 fl (80-96); MEAN PLT VOLUME 8.3 fl (7.5-11.1); RBC 2.38 M/mm3 (3.60-5.2); RDW 18.3 % (11.6-15.6); WHITE BLOOD COUNT 2.3 K/mm3 (4.0-10.0)
[2024-01-24 07:35] LABS: INR 1.91 (0.83-1.09); PROTHROMBIN TIME (PATIENT) 21.2 SEC (9.7-13.0)
[2024-01-24 07:38] LABS: PLATELET COUNT 13 10^3/uL (134-434)
[2024-01-24 07:48] LABS: CHLORIDE 106 mmol/L (98-107); POTASSIUM 4.4 mmol/L (3.5-5.1); SODIUM 137 mmol/L (136-145)
[2024-01-24 07:55] LABS: ALBUMIN 1.5 g/dl (3.4-5.0); CALCIUM 7.3 mg/dL (8.5-10.1); GLUCOSE,RANDOM 195 mg/dL (74-106)
[2024-01-24 07:56] LABS: ANION GAP 14 mmol/L (4-13); CO2 17 mmol/L (21-32); MAGNESIUM 1.9 mg/dL (1.8-2.4)
[2024-01-24 07:58] LABS: CREATININE 5.7 mg/dL (0.55-1.3); SGOT/AST 25 U/L (15-37)
[2024-01-24 07:59] LABS: LDH 479 U/L (84-246)
[2024-01-24 08:00] LABS: TOT PROT 7.4 g/dl (6.4-8.2)
[2024-01-24 08:01] LABS: ALK PHOS 55 U/L (45-117)
[2024-01-24 08:09] LABS: SGPT/ALT < 6 U/L (13-61)
[2024-01-24 08:46] LABS: ANISOCYTOSIS 0; MACROCYTOSIS 0
[2024-01-24] MEDS ORDERED: SEVELAMER CARBONATE 800 MG TAB (FP) PO SCH (09:00)
[2024-01-24] MEDS ORDERED: PHYTONADIONE 10 MG/1 ML AMP ONE (11:53)
[2024-01-24] MEDS: PHYTONADIONE 10 MG/1 ML AMP IVPB ONE (12:01)
[2024-01-24] MEDS: CEFEPIME 1 GM in DEXTROSE 5%-WATER 100 ML IVPB SCH (12:01)
[2024-01-24] MEDS: SEVELAMER CARBONATE 800 MG TAB (FP) NR SCH (12:01)
[2024-01-24] MEDS ORDERED: CEFEPIME HCL 1 GM VIAL (RESTRICTED TO ID) IVPB SCH (12:30)
[2024-01-24] MEDS ORDERED: SODIUM CHLORIDE 250 ML IV PRN (18:11)
[2024-01-24] MEDS: ALBUMIN HUMAN 25% 12.5 GM/50 ML VIAL IV SCH (19:00)
[2024-01-24] MEDS: EPOETIN ALFA-EPBX 10,000 UNIT/ML VIAL IVPUSH ONE (19:31)
[2024-01-24 21:08] LABS: ANTIGLOMERULAR BASEMENT MEN.AB <0.2 units (0.0-0.9); C-ANCA <1:20 titer (Neg:<1:20)
[2024-01-25 08:04] LABS: HEMATOCRIT 20.4 % (32.4-45.2); MCH 30.6 pg (25.7-33.7); MCHC 33.9 g/dl (32.0-36.0); MEAN CELL VOLUME 90.1 fl (80-96); MEAN PLT VOLUME 7.8 fl (7.5-11.1); RBC 2.26 M/mm3 (3.60-5.2); RDW 17.7 % (11.6-15.6)
[2024-01-25 08:06] LABS: INR 1.44 (0.83-1.09); PROTHROMBIN TIME (PATIENT) 16.1 SEC (9.7-13.0)
[2024-01-25 08:08] LABS: CHLORIDE 102 mmol/L (98-107); POTASSIUM 3.9 mmol/L (3.5-5.1); SODIUM 137 mmol/L (136-145)
[2024-01-25 08:09] LABS: ACTIVATED PTT 31.1 SECONDS (25.2-36.5)
[2024-01-25 08:11] LABS: CALCIUM 7.6 mg/dL (8.5-10.1)
[2024-01-25 08:12] LABS: ALBUMIN 1.6 g/dl (3.4-5.0); ANION GAP 12 mmol/L (4-13); BLOOD UREA NITROGEN 41.7 mg/dL (7-18); CO2 22 mmol/L (21-32); GLUCOSE,RANDOM 189 mg/dL (74-106); MAGNESIUM 1.9 mg/dL (1.8-2.4)
[2024-01-25 08:15] LABS: CREATININE 4.2 mg/dL (0.55-1.3); PHOSPHOROUS 6.1 mg/dL (2.5-4.9); SGOT/AST 13 U/L (15-37)
[2024-01-25 08:17] LABS: BILIRUBIN,TOTAL 1.3 mg/dL (0.2-1); TOT PROT 7.4 g/dl (6.4-8.2)
[2024-01-25 08:18] LABS: ALK PHOS 53 U/L (45-117)
[2024-01-25 08:22] LABS: HEMOGLOBIN 6.9 GM/dL (10.7-15.3); PLATELET COUNT 32 10^3/uL (134-434); WHITE BLOOD COUNT 1.8 K/mm3 (4.0-10.0)
[2024-01-25 08:33] LABS: LACTIC ACID 4.2 mmol/L (0.4-2.0); SGPT/ALT < 6 U/L (13-61)
[2024-01-25 08:48] LABS: ANISOCYTOSIS 1+; MACROCYTOSIS 0
[2024-01-25 11:11] LABS: LACTIC ACID 3.9 mmol/L (0.4-2.0)
[2024-01-26] MEDS ORDERED: SODIUM CHLORIDE 250 ML IV PRN (07:46)
[2024-01-26 07:51] LABS: HEMATOCRIT 23.6 % (32.4-45.2); HEMOGLOBIN 7.9 GM/dL (10.7-15.3); MCH 29.9 pg (25.7-33.7); MCHC 33.6 g/dl (32.0-36.0); MEAN CELL VOLUME 89.2 fl (80-96); MEAN PLT VOLUME 8.1 fl (7.5-11.1); RBC 2.64 M/mm3 (3.60-5.2); RDW 17.5 % (11.6-15.6)
[2024-01-26 07:59] LABS: POTASSIUM 4.2 mmol/L (3.5-5.1)
[2024-01-26 08:01] LABS: CHLORIDE 102 mmol/L (98-107); POTASSIUM 4.2 mmol/L (3.5-5.1); SODIUM 136 mmol/L (136-145)
[2024-01-26 08:03] LABS: BLOOD UREA NITROGEN 59.4 mg/dL (7-18); CALCIUM 7.8 mg/dL (8.5-10.1)
[2024-01-26 08:07] LABS: CREATININE 4.8 mg/dL (0.55-1.3); PLATELET COUNT 16 10^3/uL (134-434); WHITE BLOOD COUNT 1.6 K/mm3 (4.0-10.0)
[2024-01-26 08:09] LABS: SGOT/AST 10 U/L (15-37)
[2024-01-26 08:10] LABS: BILIRUBIN,TOTAL 1.3 mg/dL (0.2-1); TOT PROT 7.5 g/dl (6.4-8.2)
[2024-01-26 08:11] LABS: ALBUMIN 1.5 g/dl (3.4-5.0); ALK PHOS 47 U/L (45-117)
[2024-01-26 08:13] LABS: CREATININE 4.7 mg/dL (0.55-1.3)
[2024-01-26 08:14] LABS: PHOSPHOROUS 7.2 mg/dL (2.5-4.9)
[2024-01-26 08:15] LABS: CALCIUM 7.9 mg/dL (8.5-10.1)
[2024-01-26 08:16] LABS: ANION GAP 12 mmol/L (4-13); CO2 22 mmol/L (21-32); GLUCOSE,RANDOM 222 mg/dL (74-106)
[2024-01-26 08:23] LABS: LACTIC ACID 3.6 mmol/L (0.4-2.0)
[2024-01-26 08:39] LABS: SGPT/ALT < 6 U/L (13-61)
[2024-01-26] MEDS: EPOETIN ALFA-EPBX 10,000 UNIT/ML VIAL SQ ONE (10:16)
[2024-01-26 10:51] LABS: ANISOCYTOSIS 0; HELMET CELLS 0; HOWELL-JOLLY BODIES 0; MACROCYTOSIS 0; OVALOCYTE 0; ROULEAU 0; SICKELED CELLS 0; TARGET CELLS 0; TEAR DROP CELLS 0; TOXIC GRANULATION 0
[2024-01-27 07:21] LABS: HEMATOCRIT 22.1 % (32.4-45.2); HEMOGLOBIN 7.4 GM/dL (10.7-15.3); MCH 30.2 pg (25.7-33.7); MCHC 33.7 g/dl (32.0-36.0); MEAN CELL VOLUME 89.7 fl (80-96); MEAN PLT VOLUME 8.3 fl (7.5-11.1); PLATELET COUNT 47 10^3/uL (134-434); RBC 2.46 M/mm3 (3.60-5.2); RDW 17.2 % (11.6-15.6)
[2024-01-27 07:31] LABS: POTASSIUM 3.6 mmol/L (3.5-5.1)
[2024-01-27 07:35] LABS: MAGNESIUM 1.9 mg/dL (1.8-2.4)
[2024-01-27 07:37] LABS: BLOOD UREA NITROGEN 56.2 mg/dL (7-18)
[2024-01-27 07:38] LABS: CALCIUM 8.3 mg/dL (8.5-10.1)
[2024-01-27 07:41] LABS: CREATININE 3.7 mg/dL (0.55-1.3); PHOSPHOROUS 5.6 mg/dL (2.5-4.9)
[2024-01-28] MEDS: METOPROLOL TARTRATE 5 MG/5 ML VIAL IVPUSH PRN (00:31)
[2024-01-28 07:42] LABS: HEMATOCRIT 21.2 % (32.4-45.2); HEMOGLOBIN 7.3 GM/dL (10.7-15.3); MCH 30.7 pg (25.7-33.7); MCHC 34.5 g/dl (32.0-36.0); MEAN CELL VOLUME 88.8 fl (80-96); MEAN PLT VOLUME 8.2 fl (7.5-11.1); RBC 2.39 M/mm3 (3.60-5.2); RDW 16.8 % (11.6-15.6)
[2024-01-28 07:50] LABS: PLATELET COUNT 25 10^3/uL (134-434)
[2024-01-28 07:59] LABS: POTASSIUM 3.8 mmol/L (3.5-5.1)
[2024-01-28 08:04] LABS: BLOOD UREA NITROGEN 73.3 mg/dL (7-18); CALCIUM 8.5 mg/dL (8.5-10.1)
[2024-01-28 08:07] LABS: CREATININE 4.2 mg/dL (0.55-1.3)
[2024-01-28 08:08] LABS: PHOSPHOROUS 6.2 mg/dL (2.5-4.9)
[2024-01-28] MEDS: HYDROCORTISONE SOD SUCCINATE 100 MG/2 ML VIAL IVPUSH SCH (09:15)
[2024-01-28] MEDS: DEXAMETHASONE SOD PHOSPHATE 10 MG/1 ML VIAL IVPB SCH (11:39)
[2024-01-28] MEDS ORDERED: INSULIN ASPART SLIDING SCALE (NOVOLOG) 1 VIAL SQ ONE (12:39)
[2024-01-28] MEDS: INSULIN ASPART SLIDING SCALE (NOVOLOG) 1 VIAL SQ SCH (12:42)
[2024-01-28] MEDS: MIDAZOLAM HCL 2 MG/2 ML SINGLE DOSE VIAL IVPUSH ONE (12:43)
[2024-01-29 00:28] LABS: HEMATOCRIT 21.5 % (32.4-45.2); HEMOGLOBIN 7.3 GM/dL (10.7-15.3); MCH 30.3 pg (25.7-33.7); MCHC 33.9 g/dl (32.0-36.0); MEAN CELL VOLUME 89.6 fl (80-96); MEAN PLT VOLUME 7.8 fl (7.5-11.1); RDW 17.3 % (11.6-15.6)
[2024-01-29 01:04] LABS: WHITE BLOOD COUNT 1.3 K/mm3 (4.0-10.0)
[2024-01-29 01:05] LABS: INR 1.23 (0.83-1.09); PLATELET COUNT 16 10^3/uL (134-434); PROTHROMBIN TIME (PATIENT) 14.1 SEC (9.7-13.0)
[2024-01-29 07:30] LABS: HEMATOCRIT 19.9 % (32.4-45.2); MCH 30.3 pg (25.7-33.7); MCHC 33.6 g/dl (32.0-36.0); MEAN CELL VOLUME 90.2 fl (80-96); MEAN PLT VOLUME 9.6 fl (7.5-11.1); PLATELET COUNT 61 10^3/uL (134-434); RDW 17.2 % (11.6-15.6)
[2024-01-29 07:47] LABS: HEMOGLOBIN 6.7 GM/dL (10.7-15.3); WHITE BLOOD COUNT 1.2 K/mm3 (4.0-10.0)
[2024-01-29 07:50] LABS: POTASSIUM 3.7 mmol/L (3.5-5.1)
[2024-01-29 07:55] LABS: BLOOD UREA NITROGEN 87.6 mg/dL (7-18); CALCIUM 8.3 mg/dL (8.5-10.1); MAGNESIUM 1.9 mg/dL (1.8-2.4)
[2024-01-29 07:57] LABS: ALBUMIN 1.5 g/dl (3.4-5.0); CREATININE 4.7 mg/dL (0.55-1.3)
[2024-01-29 07:59] LABS: BILIRUBIN,TOTAL 1.3 mg/dL (0.2-1); TOT PROT 7.3 g/dl (6.4-8.2)
[2024-01-29 08:02] LABS: PHOSPHOROUS 6.3 mg/dL (2.5-4.9)
[2024-01-29] MEDS ORDERED: SODIUM CHLORIDE 250 ML IV PRN (08:39)
[2024-01-29] MEDS: EPOETIN ALFA-EPBX 10,000 UNIT/ML VIAL SQ ONE (09:16)
[2024-01-29 09:57] LABS: ANISOCYTOSIS 2+; MACROCYTOSIS 0
[2024-01-29] MEDS: ALBUMIN HUMAN 25% 12.5 GM/50 ML VIAL IV SCH (10:00)
[2024-01-30 06:06] LABS: HEMATOCRIT 24.1 % (32.4-45.2); HEMOGLOBIN 8.2 GM/dL (10.7-15.3); MCH 30.2 pg (25.7-33.7); MCHC 33.9 g/dl (32.0-36.0); MEAN CELL VOLUME 89.1 fl (80-96); MEAN PLT VOLUME 8.9 fl (7.5-11.1); RDW 16.2 % (11.6-15.6)
[2024-01-30 06:26] LABS: CHLORIDE 101 mmol/L (98-107); POTASSIUM 3.4 mmol/L (3.5-5.1); SODIUM 137 mmol/L (136-145)
[2024-01-30 06:29] LABS: ANION GAP 12 mmol/L (4-13); BLOOD UREA NITROGEN 65.4 mg/dL (7-18); CALCIUM 7.9 mg/dL (8.5-10.1); CO2 24 mmol/L (21-32); GLUCOSE,RANDOM 195 mg/dL (74-106); MAGNESIUM 1.8 mg/dL (1.8-2.4)
[2024-01-30 06:32] LABS: CREATININE 3.5 mg/dL (0.55-1.3); PHOSPHOROUS 4.8 mg/dL (2.5-4.9); SGOT/AST 8 U/L (15-37)
[2024-01-30 06:33] LABS: SGPT/ALT < 6 U/L (13-61)
[2024-01-30 06:34] LABS: BILIRUBIN,TOTAL 2.6 mg/dL (0.2-1); TOT PROT 7.5 g/dl (6.4-8.2)
[2024-01-30 06:36] LABS: ALK PHOS 40 U/L (45-117); WHITE BLOOD COUNT 1.7 K/mm3 (4.0-10.0)
[2024-01-30 06:38] LABS: PLATELET COUNT 25 10^3/uL (134-434)
[2024-01-30 06:59] LABS: ALBUMIN 2.1 g/dl (3.4-5.0)
[2024-01-30 08:54] LABS: ANISOCYTOSIS 1+; MACROCYTOSIS 0; OVALOCYTE 1+; TARGET CELLS 1+; TOXIC GRANULATION 1+
[2024-01-30] MEDS: KCL 10 MEQ IVPB 10 MEQ/100 ML INFUS.BAG IVPB SCH (09:25)
[2024-01-30] MEDS: MAGNESIUM 2GM/50ML STERILE WATER IVPB IVPB ONE (10:19)
[2024-01-30] MEDS ORDERED: SODIUM CHLORIDE 250 ML IV PRN (13:33)
[2024-01-30] MEDS ORDERED: INSULIN ASPART SLIDING SCALE (NOVOLOG) 1 VIAL SQ ONE ×2 (16:06→16:08)
[2024-01-31 07:35] LABS: HEMATOCRIT 24.3 % (32.4-45.2); HEMOGLOBIN 8.3 GM/dL (10.7-15.3); MCH 30.6 pg (25.7-33.7); MCHC 34.2 g/dl (32.0-36.0); MEAN CELL VOLUME 89.6 fl (80-96); MEAN PLT VOLUME 8.7 fl (7.5-11.1); RBC 2.72 M/mm3 (3.60-5.2); RDW 16.1 % (11.6-15.6)
[2024-01-31 07:43] LABS: WHITE BLOOD COUNT 1.7 K/mm3 (4.0-10.0)
[2024-01-31 07:44] LABS: PLATELET COUNT 15 10^3/uL (134-434)
[2024-01-31 07:45] LABS: CHLORIDE 101 mmol/L (98-107); POTASSIUM 3.8 mmol/L (3.5-5.1); SODIUM 138 mmol/L (136-145)
[2024-01-31 07:52] LABS: ALBUMIN 1.8 g/dl (3.4-5.0); ANION GAP 14 mmol/L (4-13); CALCIUM 7.9 mg/dL (8.5-10.1); CO2 23 mmol/L (21-32)
[2024-01-31 07:53] LABS: GLUCOSE,RANDOM 203 mg/dL (74-106); MAGNESIUM 2.3 mg/dL (1.8-2.4)
[2024-01-31 07:55] LABS: SGOT/AST 7 U/L (15-37)
[2024-01-31 07:56] LABS: PHOSPHOROUS 5.3 mg/dL (2.5-4.9); SGPT/ALT < 6 U/L (13-61)
[2024-01-31 07:57] LABS: BILIRUBIN,TOTAL 2.4 mg/dL (0.2-1); TOT PROT 7.2 g/dl (6.4-8.2)
[2024-01-31 07:58] LABS: ALK PHOS 41 U/L (45-117)
[2024-01-31] MEDS ORDERED: EPOETIN ALFA-EPBX 10,000 UNIT/ML VIAL IVPUSH ONE (08:15)
[2024-01-31] MEDS ORDERED: ALBUMIN HUMAN 25% 12.5 GM/50 ML VIAL IV SCH (08:15)
[2024-01-31 09:08] LABS: ANISOCYTOSIS 2+; MACROCYTOSIS 0
[2024-01-31] MEDS: MEROPENEM 500 MG in DEXTROSE 5%-WATER 100 ML IVPB SCH (09:13)
[2024-01-31] MEDS: NOREPINEPHRINE BITARTRATE/D5W 8 MG/250 ML BAG IVPB SCH (12:00)
[2024-01-31] MEDS ORDERED: SODIUM CHLORIDE 250 ML IV PRN (14:56)
[2024-01-31] MEDS: SEVELAMER CARBONATE 0.8 GM POWDER PACKET PO SCH (17:15)
[2024-02-01 07:01] LABS: BASO % 0.4 % (0-2.0); EOS % 0.1 % (0-4.5); HEMATOCRIT 25.6 % (32.4-45.2); HEMOGLOBIN 8.6 GM/dL (10.7-15.3); MCH 30.6 pg (25.7-33.7); MCHC 33.4 g/dl (32.0-36.0); MEAN CELL VOLUME 91.7 fl (80-96); MEAN PLT VOLUME 9.4 fl (7.5-11.1); MONO % 4.1 % (3.8-10.2); NEUT % 82.4 % (42.8-82.8); RBC 2.79 M/mm3 (3.60-5.2); RDW 16.2 % (11.6-15.6); WHITE BLOOD COUNT 2.5 K/mm3 (4.0-10.0)
[2024-02-01 07:16] LABS: POTASSIUM 4.2 mmol/L (3.5-5.1)
[2024-02-01 07:20] LABS: PLATELET COUNT 34 10^3/uL (134-434)
[2024-02-01 07:36] LABS: CALCIUM 8.1 mg/dL (8.5-10.1)
[2024-02-01 07:37] LABS: ALBUMIN 1.6 g/dl (3.4-5.0); BLOOD UREA NITROGEN 96.7 mg/dL (7-18); MAGNESIUM 2.5 mg/dL (1.8-2.4)
[2024-02-01 07:40] LABS: CREATININE 4.2 mg/dL (0.55-1.3); PHOSPHOROUS 6.8 mg/dL (2.5-4.9)
[2024-02-01 07:41] LABS: BILIRUBIN,TOTAL 2.1 mg/dL (0.2-1); TOT PROT 7.1 g/dl (6.4-8.2)
[2024-02-01] MEDS ORDERED: EPOETIN ALFA-EPBX 10,000 UNIT/ML VIAL IVPUSH ONE (08:15)
[2024-02-01] MEDS: VASopressin 40 UNITS/100 ML BAG IV SCH (09:26)
[2024-02-01] MEDS ORDERED: MORPHINE SULFATE/0.9% NACL/PF 100 MG/100 ML BAG IVPB SCH (10:30)
[2024-02-01] MEDS: MORPHINE 100 MG/100 ML MG IVPB SCH (11:24)
[2024-02-01 18:24] VITALS: BP 99/61; RESP 21; TEMP 97.6
[2024-02-01 18:29] VITALS: PULSE 77
[2024-02-02] MEDS ORDERED: MEROPENEM 500 MG PUSH 500 MG/10 ML DISP.SYRIN IVPUSH SCH (10:00)
== END 2024-02-01 22:04 | disposition expired | DRG 840 ==
LOC: JER 12:10 → JERBED 20:49 → OBSVTOIN 01-05 09:43 → J4W 01-05 12:29 → JICU 01-11 19:08 → J2W 01-19 21:50 → JICU 01-22 14:22
PROVIDERS: ADMIT Internal Medicine; ATTEND Internal Medicine Pulmonary Disease
PROC: 02HV33Z Insertion of Infusion Device into Superior Vena Cava, Percutaneous Approach (ICD-10-PCS; principal; 2024-01-05)
PROC: B548ZZA Ultrasonography of Superior Vena Cava, Guidance (ICD-10-PCS; 2024-01-05)
PROC: 30233R1 Transfusion of Nonautologous Platelets into Peripheral Vein, Percutaneous Approach (ICD-10-PCS; 2024-01-05)
PROC: 5A1D70Z Performance of Urinary Filtration, Intermittent, Less than 6 Hours Per Day (ICD-10-PCS; 2024-01-06)
PROC: 0W9930Z Drainage of Right Pleural Cavity with Drainage Device, Percutaneous Approach (ICD-10-PCS; 2024-01-11)
PROC: 05JY3ZZ Inspection of Upper Vein, Percutaneous Approach (ICD-10-PCS; 2024-01-11)
PROC: 30233R1 Transfusion of Nonautologous Platelets into Peripheral Vein, Percutaneous Approach (ICD-10-PCS; 2024-01-11)
PROC: 05HB33Z Insertion of Infusion Device into Right Basilic Vein, Percutaneous Approach (ICD-10-PCS; 2024-01-21)
PROC: B54MZZA Ultrasonography of Right Upper Extremity Veins, Guidance (ICD-10-PCS; 2024-01-21)
PROC: 06HN33Z Insertion of Infusion Device into Left Femoral Vein, Percutaneous Approach (ICD-10-PCS; 2024-01-22)
PROC: B54CZZA Ultrasonography of Left Lower Extremity Veins, Guidance (ICD-10-PCS; 2024-01-22)
PROC: 04HY32Z Insertion of Monitoring Device into Lower Artery, Percutaneous Approach (ICD-10-PCS; 2024-01-22)
PROC: 4A133B1 Monitoring of Arterial Pressure, Peripheral, Percutaneous Approach (ICD-10-PCS; 2024-01-22)
PROC: 4A133J1 Monitoring of Arterial Pulse, Peripheral, Percutaneous Approach (ICD-10-PCS; 2024-01-22)
DX: C88.00 Waldenstrom macroglobulinemia not having achieved remission (principal); G93.41 Metabolic encephalopathy; J95.811 Postprocedural pneumothorax; J18.9 Pneumonia, unspecified organism; N18.6 End stage renal disease; J96.90 Respiratory failure, unspecified, unspecified whether with hypoxia or hypercapnia; E87.20 Acidosis, unspecified; D61.818 Other pancytopenia; H34.8120 Central retinal vein occlusion, left eye, with macular edema; I12.0 Hypertensive chronic kidney disease with stage 5 chronic kidney disease or end stage renal disease; I47.10 Supraventricular tachycardia, unspecified; D68.9 Coagulation defect, unspecified; J90 Pleural effusion, not elsewhere classified; R65.10 Systemic inflammatory response syndrome (SIRS) of non-infectious origin without acute organ dysfunction; E87.5 Hyperkalemia; E86.0 Dehydration; Z99.2 Dependence on renal dialysis; R19.7 Diarrhea, unspecified; Y83.8 Other surgical procedures as the cause of abnormal reaction of the patient, or of later complication, without mention of misadventure at the time of the procedure; E83.42 Hypomagnesemia; I95.89 Other hypotension; D64.9 Anemia, unspecified; R62.7 Adult failure to thrive
CPT/HCPCS: 0241U-QW; 36415; 36430; 36600; 70450-TC; 71045-TC-FY; 71250-TC; 74176-TC; 76000-TC-FY; 80048; 80053; 80061; 81003; 82024; 82247; 82248; 82533; 82550; 82728; 82784; 82803; 82962; 83010; 83036; 83516; 83520; 83540; 83550; 83605; 83615; 83735; 83880; 83970; 84100; 84132; 84439; 84443; 84484; 85025; 85027; 85045; 85384; 85610; 85730; 85810; 86038; 86140; 86225; 86256; 86704; 86705; 86706; 86803; 86850; 86880; 86900; 86901; 86922; 87040; 87045; 87046; 87086; 87324; 87340; 87389; 87449; 87517; 87635; 93005; 93010; 93306-TC; 94010; 94760; 97116-GP; 97162-GP; 99285-25; C1750; G0378; J0131; J0885; J1100; J1644; J3490; P9034; P9037; P9038; P9047; P9058; Q5106